=== PATIENT | male | born 1980 | race Two or more races ===

== ENCOUNTER 2017-02-24 14:02 | Emergency (ER) | payer MEDICAID, OTHER ==
[~2017-02-24] VITALS: Ht 188 cm; Wt 79.5 kg
[2017-02-24 14:03] VITALS: BP 126/66; PULSE 69; RESP 18; TEMP 98.8; O2SAT 94
--- NOTE | 2017-02-24 14:16 | PD ---
Physical Exam Time Seen by Provider: 14:14 Narrative 36yo M c/o low sternal chest pain, labored breathing and abd pain x 2 days. Denies N, V. Reports radiation of pain to L arm yesterday. Reports palpitations. Patient seen in triage. VS reviewed. Awaiting bed placement. Data Data Last Documented VS Vital Signs Date Time Temp Pulse Resp B/P Pulse Ox O2 Delivery O2 Flow Rate FiO2 02/24/17 14:03 98.8 69 18 126/66 94 Room Air [facility] Supervised Visit with [place]: Megan Sanchez February 24, 2017 14:16
[2017-02-24] MEDS ORDERED: SODIUM CHLOR 0.9% 1000 ML INJ 1,000 ML IV SCH (14:26)
[2017-02-24] MEDS ORDERED: ONDANSETRON HCL 4 MG/2 ML VIAL IVP ONE (14:30)
[2017-02-24] MEDS ORDERED: LIDOCAINE VISCOUS 2% SOLN 15 ML UDC PO ONE (14:30)
[2017-02-24] MEDS ORDERED: ALUMINUM/MAGNESIUM/SIMETH 30 ML CUP PO ONE (14:30)
[2017-02-24] MEDS ORDERED: SODIUM CHLORIDE 0.9% FLUSH 10 ML FLUSH IV FLUSH PRN (14:30)
--- NOTE | 2017-02-24 14:30 | PD ---
HPI Chief Complaint: Chest Pain Time Seen by Provider: 14:20 Travel History International Travel<30 days: No Contact w/Intl Traveler<30days: No Traveled to known affect area: No History of Present Illness HPI 36-year-old male presents for evaluation of abdominal pain. Symptoms started 2 weeks ago. He describes it as an intermittent stabbing pain in the epigastrium. Yesterday he had some pain that radiated into the left proximal arm region related to these episodic abdominal pain episodes. He endorses pain when he breathes in the ED denies any intrinsic shortness of breath. He denies any chest pain, cough or congestion, nausea or vomiting, fevers or chills, flank pain, diarrhea or constipation, dysuria. No history of peptic ulcer disease, pancreatitis, cholelithiasis. Initially thought this was indigestion and used Tums and Pepto-Bismol but the symptoms persisted which prompted evaluation. He does endorse daily NSAID use for the past 20 years, typically uses ibuprofen for headaches. No other complaints. Denies etoh use, endorses tobacco use. [facility] Social History Alcohol Use: No Tobacco Use: Yes Allergies-Medications (Allergen,Severity, Reaction): Coded Allergies: No Known Allergies (Unverified , 02/24/17) Reported Meds & Prescriptions Reported Meds & Active Scripts Active No Active Prescriptions or Reported Medications Review of Systems Except as stated in HPI: all other systems reviewed are Neg Physical Exam Narrative GENERAL: Well-developed well-nourished male in no acute distress SKIN: Warm and dry. HEAD: Atraumatic. Normocephalic. EYES: Pupils equal and round. No scleral icterus. No injection or drainage. ENT: No nasal bleeding or discharge. Mucous membranes pink and moist. NECK: Trachea midline. No JVD. CARDIOVASCULAR: Regular rate and rhythm. No murmur appreciated. RESPIRATORY: No accessory muscle use. Clear to auscultation. Breath sounds equal bilaterally. No crackles no wheezing or rhonchi GASTROINTESTINAL: Abdomen soft, epigastric, right and left upper quadrant tenderness without guarding. MUSCULOSKELETAL: No obvious deformities. No edema. NEUROLOGICAL: Awake and alert. No obvious cranial nerve deficits. Motor grossly within normal limits. Normal speech. PSYCHIATRIC: Appropriate mood and affect; insight and judgment normal. Data Data Last Documented VS Vital Signs Date Time Temp Pulse Resp B/P Pulse Ox O2 Delivery O2 Flow Rate FiO2 02/24/17 14:53 99 Room Air 02/24/17 14:03 98.8 69 18 126/66 Orders Complete Blood Count With Diff (02/24/17 14:26) Comprehensive Metabolic Panel (02/24/17 14:26) Lipase (02/24/17 14:26) Urinalysis - C+S If Indicated (02/24/17 14:26) Ct Abd/Pel W Iv Contrast(Rout) (02/24/17 14:26) Iv Access Insert/Monitor (02/24/17 14:26) Ecg Monitoring (02/24/17 14:) Oximetry (02/24/17 14:26) Ondansetron Inj (Zofran Inj) (02/24/17 14:30) Sodium Chlor 0.9% 1000 Ml Inj (Ns 1000 M (02/24/17 14:26) Sodium Chloride 0.9% Flush (Ns Flush) (02/24/17 14:30) Electrocardiogram (02/24/17 14:26) Al-Mag Hy-Si 40-40-4 Mg/Ml Liq (Mag-Al P (02/24/17 14:30) Lidocaine 2% Viscous (Xylocaine 2% Visco (02/24/17 14:30) Pantoprazole Inj (Protonix Inj) (02/24/17 14:45) Ckmb (Isoenzyme) Profile (02/24/17 14:44) Troponin I (02/24/17 14:44) Iohexol 350 Inj (Omnipaque 350 Inj) (02/24/17 15:07) Labs Laboratory Tests Test 02/24/17 14:44 White Blood Count 7.7 TH/MM3 Red Blood Count 4.74 MIL/MM3 Hemoglobin 14.6 GM/DL Hematocrit 43.9 % Mean Corpuscular Volume 92.6 FL Mean Corpuscular Hemoglobin 30.8 PG Mean Corpuscular Hemoglobin 33.2 % Concent Red Cell Distribution Width 14.8 % Platelet Count 242 TH/MM3 Mean Platelet Volume 7.3 FL Neutrophils (%) (Auto) 59.9 % Lymphocytes (%) (Auto) 30.8 % Monocytes (%) (Auto) 4.8 % Eosinophils (%) (Auto) 4.0 % Basophils (%) (Auto) 0.5 % Neutrophils # (Auto) 4.6 TH/MM3 Lymphocytes # (Auto) 2.4 TH/MM3 Monocytes # (Auto) 0.4 TH/MM3 Eosinophils # (Auto) 0.3 TH/MM3 Basophils # (Auto) 0.0 TH/MM3 CBC Comment DIFF FINAL Differential Comment Sodium Level 142 MEQ/L Potassium Level 3.8 MEQ/L Chloride Level 107 MEQ/L Carbon Dioxide Level 30.6 MEQ/L Anion Gap 4 MEQ/L Blood Urea Nitrogen 12 MG/DL Creatinine 0.74 MG/DL Estimat Glomerular Filtration 120 ML/MIN Rate Random Glucose 81 MG/DL Calcium Level 8.7 MG/DL Total Bilirubin 0.5 MG/DL Aspartate Amino Transf 18 U/L (AST/SGOT) Alanine Aminotransferase 25 U/L (ALT/SGPT) Alkaline Phosphatase 50 U/L Total Creatine Kinase 100 U/L Troponin I LESS THAN 0.02 NG/ML Total Protein 6.9 GM/DL Albumin 3.7 GM/DL Lipase 219 U/L MDM Medical Decision Making Medical Screen Exam Complete: Yes Emergency Medical Condition: Yes Medical Record Reviewed: Yes Interpretation(s) EKG sinus bradycardia, rate 55, no ischemic changes CT abdomen and pelvis CONCLUSION: Tiny liver cysts. No definite acute CT findings in the abdomen or pelvis. CBC unremarkable Differential Diagnosis Peptic ulcer disease, gastritis, pancreatitis, biliary colic, cholecystitis, perforated peptic ulcer, doubt pulmonary embolism or acute coronary syndrome Narrative Course 36-year-old male who endorses daily NSAID use for 20 years presents with intermittent stabbing epigastric abdominal pain for 2 days. He has never had this sort of pain before. On examination is quite tender to palpation in the epigastrium and upper quadrants of the abdomen without guarding. Plan is for basic lab work, EKG, CT abdomen and pelvis. CT reveals tiny liver cysts, no acute findings. Lab work is otherwise normal. Upon reexamination he feels improvement after GI cocktail administration. His symptoms and history certainly consistent with gastritis and likely some degree of peptic ulcer disease. The plan therefore be to discharge the patient short course of Protonix, Carafate and have him follow-up with his primary care physician, likely GI referral for endoscopy. He verbalizes understanding. Discussed the importance of no more NSAID use. Stable for discharge. Diagnosis Primary Impression: Gastritis Qualified Code: K29.70 - Gastritis, presence of bleeding unspecified, unspecified chronicity, unspecified gastritis type Additional Instructions: Medication as prescribed. Avoid ibuprofen, Motrin, Advil, Aleve, naproxen, aspirin which all fall into the category of NSAID-based medication. Follow-up with primary care physician. Referral to a plastics technician on an outpatient basis for endoscopy would be reasonable. Return for any emergent medical conditions. Med/Other Pt SpecificInfo: Prescription(s) given Scripts Pantoprazole (Protonix)20 Mg Tab20 Mg PO DAILY #30 TAB Ref 0 Prov:Zan Rainey MD 02/24/17 Sucralfate (Carafate)1 Gm Tab1 Gm PO TID #90 TAB Ref 0 On empty stomach Prov:Zan Rainey MD 02/24/17 Disposition: 01 DISCHARGE HOME Condition: Stable Ady Mackay February 24, 2017 14:30
[2017-02-24] MEDS ORDERED: PANTOPRAZOLE SODIUM 40 MG VIAL IV PUSH ONE (14:45)
[2017-02-24 14:53] VITALS: O2SAT 99
[2017-02-24] MEDS ORDERED: IOHEXOL 350 MG/ML 10 ML VIAL (for RAD DIAG) IV ONE (15:07)
[2017-02-24 15:15] LABS: AUTOMATED NEUTROPHIL # 4.6 TH/MM3 (1.8-7.7); BASOPHIL % 0.5 % (0.0-2.0); EOSINOPHIL # 0.3 TH/MM3 (0-0.4); HEMATOCRIT 43.9 % (39.0-51.0); HEMO FLAGS DIFF FINAL; LYMPH % 30.8 % (9.0-44.0); LYMPHOCYTE # 2.4 TH/MM3 (1.0-4.8); MEAN CELL VOLUME 92.6 FL (80.0-100.0); MEAN CORPUSCULAR HEMOGLOBIN 30.8 PG (27.0-34.0); MEAN CORPUSCULAR HGB CONC 33.2 % (32.0-36.0); MONO % 4.8 % (0.0-8.0); NEUT % 59.9 % (16.0-70.0); PLATELET COUNT 242 TH/MM3 (150-450); RED BLOOD COUNT 4.74 MIL/MM3 (4.50-5.90); RED CELL DISTRIBUTION WIDTH 14.8 % (11.6-17.2); WHITE BLOOD COUNT 7.7 TH/MM3 (4.0-11.0)
--- NOTE | 2017-02-24 15:18 | RADRPT ---
EXAM DATE/TIME: 02/24/2017 15:04 [facility] COMPARISON: No previous studies available for comparison. INDICATIONS : Diffuse abdomen pain in epigastric region. IV CONTRAST: 100 cc Omnipaque 350 (iohexol) IV ORAL CONTRAST: No oral contrast ingested. RADIATION DOSE: 9.96 CTDIvol (mGy) MEDICAL HISTORY : None SURGICAL HISTORY : None. ENCOUNTER: Initial ACUITY: 2 weeks PAIN SCALE: 6/10 LOCATION: Bilateral upper quadrant TECHNIQUE: Volumetric scanning of the abdomen and pelvis was performed. Using automated exposure control and ad justment of the mA and/or kV according to patient size, radiation dose was kept as low as reasonably achievable to obtain optimal diagnostic quality images. FINDINGS: LOWER LUNGS: The visualized lower lungs are clear. LIVER: Mildly diminished hepatic attenuation may reflect mild steatosis. There are a couple of tiny low-dens ity areas, likely cysts, one in the left lobe and one in the inferior lateral aspect of the right lob e. No evidence of biliary ductal dilatation. SPLEEN: Normal size without lesion. PANCREAS: Within normal limits. KIDNEYS: Normal in size and shape. There is no mass, stone or hydronephrosis. ADRENAL GLANDS: Within normal limits. VASCULAR: There is no aortic aneurysm. BOWEL/MESENTERY: The stomach, small bowel, and colon demonstrate no acute abnormality. There is no free intraperitone al air or fluid. ABDOMINAL WALL: Within normal limits. RETROPERITONEUM: There is no lymphadenopathy. BLADDER: No wall thickening or mass. REPRODUCTIVE: Within normal limits. INGUINAL: There is no lymphadenopathy or hernia. MUSCULOSKELETAL: Within normal limits for patient age. CONCLUSION: Tiny liver cysts. No definite acute CT findings in the abdomen or pelvis. Temo Arnett MD on February 24, 2017 at 15:12 Board Certified Radiologist. This report was verified electronically.
[2017-02-24 15:21] LABS: ALT (GPT) 25 U/L (12-78); ANION GAP 4 MEQ/L (5-15); AST (GOT) 18 U/L (15-37); BICARBONATE 30.6 MEQ/L (21.0-32.0); BLOOD UREA NITROGEN 12 MG/DL (7-18); CHLORIDE 107 MEQ/L (98-107); POTASSIUM 3.8 MEQ/L (3.5-5.1); SODIUM (NA) 142 MEQ/L (136-145)
[2017-02-24 15:25] LABS: ALKALINE PHOSPHATASE 50 U/L (45-117); GLOMERULAR FILTRATION RATE 120 ML/MIN (>89); TOTAL BILIRUBIN ADULT 0.5 MG/DL (0.2-1.0)
[2017-02-24 15:26] LABS: CREATINE KINASE 100 U/L (39-308)
[2017-02-24] MEDS ORDERED: CARA1TAB6 PO (16:02)
[2017-02-24] MEDS ORDERED: PANT20 PO (16:02)
--- NOTE | 2017-02-25 17:31 | EKG ---
Date Performed: 02/24/2017 Time Performed: 14:57:08 PTAGE: 36 years EKG: SINUS BRADYCARDIA BORDERLINE ECG NO PREVIOUS TRACING DOCTOR: Juan Manuel Rosenthal Interpretating Date/Time 02/25/2017 17:30:48
== END 2017-02-24 16:40 | disposition home or self-care (01) ==
LOC: NEPC 14:02
DX: K29.70 Gastritis, unspecified, without bleeding (principal); R94.31 Abnormal electrocardiogram [ECG] [EKG]; Z72.0 Tobacco use
CPT/HCPCS: 74177; 80053; 82550; 83690; 84484; 85025; 93005; 96374; 96375; 99285; C9113; J2405; J7030; Q9967